=== PATIENT | male | born 1990 | race Caucasian/White ===

== ENCOUNTER 2021-03-05 00:14 | Emergency (ER) | payer SELFPAY ==
[~2021-03-05] VITALS: Ht 160 cm; Wt 70.5 kg
[2021-03-05] MEDS ORDERED: IV NORMAL SALINE 1000ML BAG 1,000 ML IV ONE (00:45)
[2021-03-05 00:47] LABS: BILIRUBIN,URINE NEGATIVE (NEG); CLARITY,URINE CLEAR; COLOR,URINE YELLOW; NITRITE,URINE NEGATIVE (NEG); PROTEIN,URINE 30 mg/dL (NEG-TRACE); UROBILINOGEN,URINE 0.2 mg/dL (0.2 mg/dL)
[2021-03-05 00:53] LABS: BARBITURATES NEG (NEG); BENZODIAZEPINES POS (NEG); CANNABINOIDS POS (NEG); COCAINE NEG (NEG); METHADONE NEG (NEG); OPIATES NEG (NEG); PHENCYCLIDINE NEG (NEG)
[2021-03-05 00:56] LABS: AMPHETAMINE/METHAMPHETAMINE NEG (NEG); BACTERIA,URINE 0 /HPF (0-FEW); RBC,URINE 0 /HPF (0-2); SPERM,URINE PRESENT /HPF; WBC,URINE RARE /HPF (0-4)
[2021-03-05 01:05] LABS: BASO # 0.1 x10^3/uL (0.0-0.2); BASO % 1 % (0-3); EOS # 0.3 x10^3/uL (0.0-0.7); EOS % 3 % (0-3); HEMATOCRIT 46.3 % (39.0-53.0); HEMOGLOBIN 16.3 g/dL (13.0-17.5); LYMPH # 2.6 x10^3/uL (1.0-4.8); LYMPH % 26 % (24-48); MEAN CORPUSCULAR HEMOGLOBIN 31 pg (25-35); MEAN CORPUSCULAR HGB CONC 35 g/dL (31-37); MEAN CORPUSCULAR VOLUME 89 fL (79-100); MONO # 0.8 x10^3/uL (0.0-1.1); MONO % 8 % (0-9); NEUT # 6.1 x10^3/uL (1.8-7.7); NEUT % 63 % (31-73); PLATELET COUNT 186 x10^3/uL (140-400); RED CELL DISTRIBUTION WIDTH 12.9 % (11.5-14.5); WHITE BLOOD COUNT 9.7 x10^3/uL (4.0-11.0)
[2021-03-05 01:15] LABS: CALCIUM 8.9 mg/dL (8.5-10.1); CREATININE 1.2 mg/dL (0.7-1.3); GFR 70.6; POTASSIUM 3.5 mmol/L (3.5-5.1)
[2021-03-05 01:21] LABS: ALBUMIN 3.9 g/dL (3.4-5.0); ALBUMIN/GLOBULIN RATIO 1.1 (1.0-1.7); MAGNESIUM 2.1 mg/dL (1.8-2.4); TOTAL BILIRUBIN 0.6 mg/dL (0.2-1.0); TOTAL PROTEIN 7.5 g/dL (6.4-8.2)
--- NOTE | 2021-03-05 01:23 | RAD ---
XR ABDOMEN COMP ACUTE History: Reason: llq abd pain / Spl. Instructions: / History: Technique: Upright and supine views of the abdomen. Comparison: None. Findings: No consolidation or pleural effusion. Normal heart size. No pneumothorax. No pneumoperitoneum. Minimal small bowel gas. Air and stool scattered throughout the colon. No air-fluid levels. Impression: 1. Nonobstructed bowel gas pattern. Electronically signed by: Domingo Bravo DO (03/05/2021 1:21 AM) [facility]
--- NOTE | 2021-03-05 02:14 | PHYS DOC ---
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 Patient states the pain is described as tight and nonradiating, worsening with jumping, movements and heavy lifting, has no pain at rest. Took an Advil which helped with the pain. Last bowel movement was earlier today and was brown, denies any constipation, melena, hematochezia or loose watery stools. No history of IBS/IBD or irregular bowel movements. Has no pcp. Denies any blunt injury. Reports history of chronic, nonradiating left flank pain-this is not new pain. Review of Systems: Review of Systems: Constitutional: Denies fever or chills. [] Eyes: Denies change in visual acuity. [] HENT: Denies nasal congestion or sore throat. [] Respiratory: Denies cough or shortness of breath. [] Cardiovascular: Denies chest pain or edema. [] GI: Denies nausea, vomiting, bloody stools or diarrhea. [] : Denies dysuria, hematuria, urethral discharge, increased urinary frequency or urgency, no urinary or bowel retention or incontinence Musculoskeletal: Denies back pain or joint pain or saddle anesthesia Integument: Denies rash or diaphoresis Neurologic: Denies headache, focal weakness or sensory changes. [] Endocrine: Denies polyuria or polydipsia. [] Lymphatic: Denies swollen glands. [] Psychiatric: Denies depression or anxiety. [] Heart Score: C/O Chest Pain: No Risk Factors: Risk Factors: DM, Current or recent (<one month) smoker, HTN, HLP, family history of CAD, obesity. Risk Scores: Score 0 - 3: 2.5% MACE over next 6 weeks - Discharge Home Score 4 - 6: 20.3% MACE over next 6 weeks - Admit for Clinical Observation Score 7 - 10: 72.7% MACE over next 6 weeks - Early Invasive Strategies Current Medications: Current Medications Medications (Trade) Dose Ordered Sig/Olivier Start Time Stop Time Status Last Admin Dose Admin Sodium Chloride 1,000 ml @ 1,000 mls/hr 1X ONCE 03/05/21 00:45 03/05/21 01:44 DC 03/05/21 01:15 1,000 MLS/HR Allergies: Allergies: Allergies Coded Allergies Type Severity Reaction Last Updated Verified No Known Drug Allergies 03/28/15 No Physical Exam: PE: Constitutional: Well developed, well nourished, no acute distress, non-toxic appearance, sleeping easily HENT: Normocephalic, atraumatic, Eyes: EOMI, conjunctiva normal, no discharge. Neck: Normal range of motion, supple, Cardiovascular: S1/2 present, tachycardic on arrival Lungs & Thorax: Speaking in full sentences, bilateral equal chest rise, no tachypnea or increased work of breathing Abdomen: soft, no tenderness-I am able to palpate firm and deep with minimal grimace, no Rovsing sign, no McBurney's point tenderness, no Terry sign, no peritonitis or guarding, no inguinal fullness or swelling Skin: Warm, dry, no erythema, no rash. [] Back: No midline tenderness, no new CVA tenderness. [] Extremities: No tenderness, no cyanosis, no lower extremity edema Neurologic: Alert and oriented X 3, normal motor function, normal sensory function, no focal deficits noted, hops out of bed to show location of pain Psychologic: Affect normal, judgement normal, mood normal. [] Current Patient Data: Labs: Laboratory Tests Test 03/05/21 00:19 03/05/21 00:55 Urine Collection Type Unknown Urine Color Yellow Urine Clarity Clear Urine pH 6.0 (<5.0-8.0) Urine Specific [place] 1.020 (1.000-1.030) Urine Protein 30 mg/dL (NEG-TRACE) Urine Glucose (UA) Negative mg/dL (NEG) Urine Ketones (Stick) Negative mg/dL (NEG) Urine Blood Negative (NEG) Urine Nitrite Negative (NEG) Urine Bilirubin Negative (NEG) Urine Urobilinogen Dipstick 0.2 mg/dL (0.2 mg/dL) Urine Leukocyte Esterase Negative (NEG) Urine RBC 0 /HPF (0-2) Urine WBC Rare /HPF (0-4) Urine Squamous Epithelial Cells Occ /LPF Urine Bacteria 0 /HPF (0-FEW) Urine Mucus Slight /LPF Urine Sperm Present /HPF Urine Opiates Screen Neg (NEG) Urine Methadone Screen Neg (NEG) Urine Barbiturates Neg (NEG) Urine Phencyclidine Screen Neg (NEG) Urine Amphetamine/Methamphetamine Neg (NEG) Urine Benzodiazepines Screen Pos (NEG) Urine Cocaine Screen Neg (NEG) Urine Cannabinoids Screen Pos (NEG) Urine Ethyl Alcohol Neg (NEG) White Blood Count 9.7 x10^3/uL (4.0-11.0) Red Blood Count 5.20 x10^6/uL (4.30-5.70) Hemoglobin 16.3 g/dL (13.0-17.5) Hematocrit 46.3 % (39.0-53.0) Mean Corpuscular Volume 89 fL (79-100) Mean Corpuscular Hemoglobin 31 pg (25-35) Mean Corpuscular Hemoglobin Concent 35 g/dL (31-37) Red Cell Distribution Width 12.9 % (11.5-14.5) Platelet Count 186 x10^3/uL (140-400) Neutrophils (%) (Auto) 63 % (31-73) Lymphocytes (%) (Auto) 26 % (24-48) Monocytes (%) (Auto) 8 % (0-9) Eosinophils (%) (Auto) 3 % (0-3) Basophils (%) (Auto) 1 % (0-3) Neutrophils # (Auto) 6.1 x10^3/uL (1.8-7.7) Lymphocytes # (Auto) 2.6 x10^3/uL (1.0-4.8) Monocytes # (Auto) 0.8 x10^3/uL (0.0-1.1) Eosinophils # (Auto) 0.3 x10^3/uL (0.0-0.7) Basophils # (Auto) 0.1 x10^3/uL (0.0-0.2) Sodium Level 138 mmol/L (136-145) Potassium Level 3.5 mmol/L (3.5-5.1) Chloride Level 102 mmol/L (98-107) Carbon Dioxide Level 30 mmol/L (21-32) Anion Gap 6 (6-14) Blood Urea Nitrogen 17 mg/dL (8-26) Creatinine 1.2 mg/dL (0.7-1.3) Estimated GFR (Cockcroft-Gault) 70.6 BUN/Creatinine Ratio 14 (6-20) Glucose Level 88 mg/dL (70-99) Calcium Level 8.9 mg/dL (8.5-10.1) Magnesium Level 2.1 mg/dL (1.8-2.4) Total Bilirubin 0.6 mg/dL (0.2-1.0) Aspartate Amino Transferase (AST) 17 U/L (15-37) Alanine Aminotransferase (ALT) 44 U/L (16-63) Alkaline Phosphatase 89 U/L (46-116) Total Protein 7.5 g/dL (6.4-8.2) Albumin 3.9 g/dL (3.4-5.0) Albumin/Globulin Ratio 1.1 (1.0-1.7) Lipase 91 U/L (73-393) Ethyl Alcohol Level < 10 mg/dL (0-10) Laboratory Tests 03/05/21 00:55 Laboratory Tests 03/05/21 00:55 Vital Signs: Vital Signs Date Time Temp Pulse Resp B/P (MAP) Pulse Ox O2 Delivery O2 Flow Rate FiO2 03/05/21 00:30 97.7 112 12 159/93 (115) 97 Room Air 97.7 EKG: EKG: [] Radiology/Procedures: Radiology/Procedures: IMAGING REPORT Signed PATIENT: KEVIN WILSON ACCOUNT: [id number] : 1990 LOCATION: ER AGE: 30 SEX: M EXAM STATUS: REG ER ORD. PHYSICIAN: SHARONA CR DO REASON: llq abd pain PROCEDURE: ACUTE ABDOMEN SERIES XR ABDOMEN COMP ACUTE History: Reason: llq abd pain / Spl. Instructions: / History: Technique: Upright and supine views of the abdomen. Comparison: None. Findings: No consolidation or pleural effusion. Normal heart size. No pneumothorax. No pneumoperitoneum. Minimal small bowel gas. Air and stool scattered throughout the colon. No air- fluid levels. Impression: 1. Nonobstructed bowel gas pattern. Electronically signed by: Domingo Bravo DO (03/05/2021 1:21 AM) [facility] DICTATED and SIGNED BY: DOMINGO BRAVO DO DATE: 03/05/21 [id number] IMAGING REPORT Signed PATIENT: KEVIN WILSON ACCOUNT: [id number] : 1990 LOCATION: ER AGE: 30 SEX: M EXAM STATUS: REG ER ORD. PHYSICIAN: SHARONA CR DO REASON: llq pain and left flank pain PROCEDURE: CT ABDOMEN PELVIS WO CONTRAST CT ABDOMEN+PELVIS WO History: Reason: llq pain and left flank pain / Spl. Instructions: / History: Technique: Noncontrast examination of the abdomen and pelvis. Coronal and sagittal reconstructions were performed. Exposure: One or more of the following individualized dose reduction techniques were utilized for this examination: 1. Automated exposure control 2. Adjustment of the mA and/or kV according to patient size 3. Use of iterative reconstruction technique. Comparison: None Findings: Lower chest: No consolidation or pleural effusion. Abdomen and pelvis: The liver, spleen, adrenal glands, pancreas and gallbladder are unremarkable. No biliary ductal dilatation. Unremarkable noncontrast appearance of the kidneys. No hydronephrosis. No renal, ureteral or urinary bladder calculus. Mild inflammatory changes adjacent to the descending colon. No abscess. No perforation. Normal appendix. No evidence of bowel obstruction. No pathologic lymph adenopathy. No ascites. Small fat-containing umbilical hernia. Bones: No pathologic osseous lesions. Impression: 1. Mild inflammatory changes adjacent to the descending colon, may represent epiploic appendagitis or diverticulitis. Electronically signed by: Domingo Bravo DO (03/05/2021 3:05 AM) [facility] DICTATED and SIGNED BY: DOMINGO BRAVO DO DATE: 03/05/21 [id number] Course & Med Decision Making: Course & Med Decision Making Pertinent Labs and Imaging studies reviewed. (See chart for details) Left lower quadrant pain that only exists with exertion and heavy lifting. CT with no findings of appendicitis. May consider diverticulitis versus epiploic appendagitis. Patient afebrile with no leukocytosis. Tachycardic on arrival in the setting of marijuana and benzo use. I rechecked HR - 84. No UTI. Patient reports normal bowel movements. No reproducible tenderness, no scrotal/penile/urinary sxs. Will discharge home with strict ED return precautions were given for severe pain, rash or dehydration. Encouraged urgent outpatient follow-up with PMD and GI for definitive management. Life- threatening processes were considered but are low suspicion at this time, given history, physical exam and ED workup. Pt was educated on all prescription medications and adverse effects. All patient's questions were answered and pt was stable at time of discharge. Life/limb-threatening differential includes but is not limited to, aortic dissection, aortic aneurysm, acute coronary syndrome, surgical abdomen (appendicitis, cholecystitis, ischemic bowel, strangulated hernia, etc), bowel obstruction or volvulus, bladder outlet obstruction, gastrointestinal bleeding, inflammatory bowel disease, peptic ulcer disease, ACS/CAD, sepsis, diverticular disease, ureterolithiasis, nephrolithiasis, ovarian or testicular torsion, ectopic , vaginal hemorrhage, or genitourinary infection. I spoken with the patient and her caregivers. I explained the patient's condition, diagnoses and treatment plan based on the information available to me at this time. I have answered the patient and her caregiver's questions and addressed any concerns. The patient and her caregivers have a good understanding of patient's diagnosis, condition and treatment plan as can be expected at this point. Vital signs have been stable. Patient's condition is stable and appropriate for discharge from the emergency department. Patient will pursue further outpatient evaluation with primary care physician or other designated or consulting physician as outlined in the discharge instructions. The patient and/or caregivers are agreeable to this plan of care and follow-up instructions have been explained in detail. The patient and/or caregivers have received these instructions in written form and have expressed an understanding of the discharge instructions. The patient and/or caregivers are aware that any significant change of condition or worsening of symptoms should prompt immediate return to this or the closest emergency department or call to 911. Gallo Disclaimer: Gallo Disclaimer: This electronic medical record was generated, in whole or in part, using a voice recognition dictation system. Departure Departure Impression: Primary Impression: LLQ abdominal pain Additional Impression: Marijuana abuse Disposition: 01 DC HOME SELF CARE/HOMELESS Condition: STABLE Referrals: NO PCP (PCP) For reevaluation FOLLOW UP WITH FAMILY MEDICINE: Family Medicine Address: [address] [facility] [place] [address] Patient Instructions: Abdominal Pain, Diverticulitis Additional Instructions: FOLLOW UP WITH GASTROENTEROLOGY: For definitive management Gastroenterology [facility] Address: [address] [place] [address] SHARONA BACH DO Mar 05, 2021 02:14
--- NOTE | 2021-03-05 03:08 | RAD ---
CT ABDOMEN+PELVIS WO History: Reason: llq pain and left flank pain / Spl. Instructions: / History: Technique: Noncontrast examination of the abdomen and pelvis. Coronal and sagittal reconstructions we re performed. Exposure: One or more of the following individualized dose reduction techniques were utilized for thi s examination: 1. Automated exposure control 2. Adjustment of the mA and/or kV according to patient size 3. Use of iterative reconstruction technique. Comparison: None Findings: Lower chest: No consolidation or pleural effusion. Abdomen and pelvis: The liver, spleen, adrenal glands, pancreas and gallbladder are unremarkable. No biliary ductal dilatation. Unremarkable noncontrast appearance of the kidneys. No hydronephrosis. No renal, ureteral or urinary bladder calculus. Mild inflammatory changes adjacent to the descending colon. No abscess. No perforation. Normal appendix. No evidence of bowel obstruction. No pathologic lymphadenopathy. No ascites. Small f at-containing umbilical hernia. Bones: No pathologic osseous lesions. Impression: 1. Mild inflammatory changes adjacent to the descending colon, may represent epiploic appendagitis o r diverticulitis. Electronically signed by: Domingo Bravo DO (03/05/2021 3:05 AM) [facility]
[2021-03-05 03:22] VITALS: BP 124/81
[2021-03-05] MEDS ORDERED: KETOROLAC 15 MG/ML VIAL. IVP ONE (03:45)
== END 2021-03-05 03:56 | disposition home or self-care (01) ==
LOC: ER 00:14
DX: R10.32 Left lower quadrant pain (principal); F12.10 Cannabis abuse, uncomplicated; K42.9 Umbilical hernia without obstruction or gangrene; Z87.891 Personal history of nicotine dependence
CPT/HCPCS: 36415; 74022; 74176; 80053; 80307; 81001; 83690; 83735; 85025; 96361; 96374; 99285; G0480; J1885; J7030